=== PATIENT | male | born 1965 | race Caucasian/White ===

== ENCOUNTER 2021-11-29 10:47 | Inpatient (IN) | payer OTHER ==
[~2021-11-29] VITALS: Ht 165.1 cm; Wt 86.6 kg
[2021-11-29 10:56] VITALS: BP 154/87
[2021-11-29 11:42] LABS: BASOPHILS # (AUTO) 0.1 K/uL (0.00-0.22); HEMATOCRIT 22.2 % (36-52); LYMPHOCYTES # (AUTO) 0.7 K/uL (2.0-11.5); MONOCYTES # (AUTO) 0.5 K/uL (0.8-1.0); NEUTROPHILS # (AUTO) 3.1 K/uL (1.8-7.7)
[2021-11-29 11:51] LABS: BASOPHILS % (AUTO) 1.7 % (0.0-2.0); EOSINOPHILS % (AUTO) 0.8 % (0.0-4.0); LYMPHOCYTES % (AUTO) 15.5 % (20.5-51.1); MEAN CORPUSCULAR HEMOGLOBIN 19 pg (27-31); MEAN CORPUSCULAR HGB CONC 28 g/dL (33-37); MEAN CORPUSCULAR VOLUME 65.1 fL (80-94); MONOCYTES % (AUTO) 11.9 % (1.7-9.3); NEUTROPHILS % (AUTO) 70.1 % (42.2-75.2); PLATELET COUNT (AUTO) 230 K/uL (140-450); RED BLOOD CELL COUNT(AUTO) 3.42 MIL/uL (4.20-6.10); RED CELL DISTRIBUTION WIDTH 24.8 % (11.6-13.7); WHITE BLOOD COUNT (AUTO) 4.4 K/uL (4.8-10.8)
[2021-11-29 11:53] LABS: PROTHROMBIN TIME 12.8 secs (10.8-13.4)
[2021-11-29 11:56] LABS: HEMOGLOBIN 6.3 g/dL (12.0-18.0)
[2021-11-29 12:01] LABS: ALBUMIN 2.6 g/dL (3.4-5.0); CARBON DIOXIDE 22.8 mmol/L (21-32); CREATININE 0.8 mg/dL (0.6-1.3); POTASSIUM 3.8 mmol/L (3.5-5.1)
[2021-11-29 12:52] LABS: APPEARANCE,URINE CLEAR (CLEAR); BILIRUBIN,URINE 2+ (NEGATIVE); BLOOD, URINE NEGATIVE (NEGATIVE); COLOR,URINE YELLOW (YELLOW); LEUKOCYTE ESTERASE ,URINE NEGATIVE (NEGATIVE); NITRITE, URINE NEGATIVE (NEGATIVE); UGLUCOSE TRACE (NEGATIVE)
[2021-11-29 13:50] LABS: RBC,URINE 0-5 /HPF (0-5); WBC,URINE 0-5 /HPF (0-5)
[2021-11-29 14:05] LABS: LIPASE 655 U/L (73-393)
[2021-11-29] MEDS ORDERED: KCL 20 MEQ/WATER INJ PREMIX 200 ML IV PRN (14:30)
[2021-11-29] MEDS ORDERED: MAGNESIUM OXIDE 400 MG TAB PO PRN (14:30)
[2021-11-29] MEDS ORDERED: POTASSIUM CHLORIDE 10 MEQ TABER PO PRN (14:30)
[2021-11-29] MEDS ORDERED: ACETAMINOPHEN 325 MG TAB PO PRN (14:30)
[2021-11-29] MEDS ORDERED: ONDANSETRON 4 MG/2 ML VIAL IVP PRN (14:30)
[2021-11-29] MEDS ORDERED: MORPHINE SULFATE 4 MG/ML SYR IVP PRN (14:30)
[2021-11-29] MEDS ORDERED: HYDROcodone/APAP 5/325 MG 1 TAB TAB PO PRN (14:30)
[2021-11-29] MEDS ORDERED: MAG SULF 2000 MG/WATER PREMIX 50 ML IV PRN (14:30)
[2021-11-30] VITALS (10 sets, daily range): BP systolic 131–167; BP diastolic 75–101
[2021-11-30 06:48] LABS: BASOPHILS # (AUTO) 0.1 K/uL (0.00-0.22); BASOPHILS % (AUTO) 1.3 % (0.0-2.0); EOSINOPHILS # (AUTO) 0.1 K/uL (0-0.4); EOSINOPHILS % (AUTO) 1.7 % (0.0-4.0); HEMATOCRIT 23.6 % (36-52); LYMPHOCYTES # (AUTO) 0.8 K/uL (2.0-11.5); MEAN CORPUSCULAR HEMOGLOBIN 20 pg (27-31); MEAN CORPUSCULAR HGB CONC 30 g/dL (33-37); MEAN CORPUSCULAR VOLUME 66.7 fL (80-94); MONOCYTES # (AUTO) 0.5 K/uL (0.8-1.0); NEUTROPHILS # (AUTO) 3.7 K/uL (1.8-7.7); NEUTROPHILS % (AUTO) 71.8 % (42.2-75.2); PLATELET COUNT (AUTO) 205 K/uL (140-450); RED BLOOD CELL COUNT(AUTO) 3.54 MIL/uL (4.20-6.10); RED CELL DISTRIBUTION WIDTH 26.3 % (11.6-13.7); WHITE BLOOD COUNT (AUTO) 5.2 K/uL (4.8-10.8)
[2021-11-30 07:53] LABS: LYMPHOCYTES % (AUTO) 15.8 % (20.5-51.1); MONOCYTES % (AUTO) 9.4 % (1.7-9.3)
[2021-11-30 08:00] LABS: ALBUMIN 2.4 g/dL (3.4-5.0); ANION GAP 14.6 (8-16); ASPARTATE AMINOTRANSFERASE 48 U/L (15-37); CARBON DIOXIDE 21.1 mmol/L (21-32); CHLORIDE 102 mmol/L (98-107); CREATININE 0.8 mg/dL (0.6-1.3); GFR ARICAN-AMERICAN 128 mL/min (>90); GLUCOSE 107 mg/dL (74-106); MAGNESIUM 1.7 mg/dL (1.8-2.4); POTASSIUM 3.7 mmol/L (3.5-5.1); SODIUM SERUM 134 mmol/L (136-145); TOTAL BILIRUBIN 3.8 mg/dL (0.0-1.0); UREA NITROGEN, BLOOD 7 mg/dL (7-18)
[2021-11-30] MEDS: DOCUSATE SODIUM 100 MG GELCAP PO SCH (09:00)
[2021-11-30] MEDS: PANTOPRAZOLE 80 MG in NACL 0.9% 100 ML IVP SCH ×2 (14:30→23:37)
[2021-11-30] MEDS: PANTOPRAZOLE 40 MG INJ VIAL IVP SCH (20:45)
[2021-12-01] VITALS: BP 153/91
[2021-12-01 04:00] VITALS: BP 146/79
[2021-12-01 07:08] LABS: ALBUMIN 2.3 g/dL (3.4-5.0); ANION GAP 12.3 (8-16); CARBON DIOXIDE 25.4 mmol/L (21-32); CREATININE 0.9 mg/dL (0.6-1.3); POTASSIUM 3.7 mmol/L (3.5-5.1); TOTAL BILIRUBIN 3.5 mg/dL (0.0-1.0)
[2021-12-01 07:11] LABS: BASOPHILS % (AUTO) 0.8 % (0.0-2.0); EOSINOPHILS # (AUTO) 0.1 K/uL (0-0.4); EOSINOPHILS % (AUTO) 2.5 % (0.0-4.0); HEMOGLOBIN 7.1 g/dL (12.0-18.0); LYMPHOCYTES # (AUTO) 0.8 K/uL (2.0-11.5); LYMPHOCYTES % (AUTO) 16.3 % (20.5-51.1); MEAN CORPUSCULAR HEMOGLOBIN 20 pg (27-31); MEAN CORPUSCULAR HGB CONC 30 g/dL (33-37); MEAN CORPUSCULAR VOLUME 66.9 fL (80-94); MONOCYTES # (AUTO) 0.5 K/uL (0.8-1.0); MONOCYTES % (AUTO) 9.7 % (1.7-9.3); NEUTROPHILS # (AUTO) 3.5 K/uL (1.8-7.7); NEUTROPHILS % (AUTO) 70.7 % (42.2-75.2); PLATELET COUNT (AUTO) 215 K/uL (140-450); RED BLOOD CELL COUNT(AUTO) 3.58 MIL/uL (4.20-6.10)
[2021-12-01 07:34] LABS: MAGNESIUM 1.6 mg/dL (1.8-2.4)
[2021-12-01 08:00] VITALS: BP 148/86
[2021-12-01] MEDS: PANTOPRAZOLE 40 MG INJ VIAL IVP SCH (09:00)
[2021-12-01] MEDS: DOCUSATE SODIUM 100 MG GELCAP PO SCH (10:19)
[2021-12-01] MEDS: PANTOPRAZOLE 80 MG in NACL 0.9% 100 ML IVP SCH (10:34)
[2021-12-01 12:00] VITALS: BP 136/83
[2021-12-01 16:00] VITALS: BP 131/81
[2021-12-01 17:21] LABS: PROTHROMBIN TIME 13.6 secs (10.8-13.4)
[2021-12-01] MEDS ORDERED: LIDOCAINE MPF 1% 5 ML ONE (17:46)
[2021-12-01 20:00] VITALS: BP 145/80
[2021-12-01] MEDS: PANTOPRAZOLE 40 MG TABEC PO SCH (20:34)
[2021-12-01 20:51] LABS: GLUCOSE,BODY FLUID 123 mg/dL
[2021-12-01 21:05] LABS: APPEARANCE,SPUN,BODY FLUID CLEAR (CLEAR); APPEARANCE,UNSPUN,BODY FLUID CLEAR (CLEAR); COLOR,BODY FLUID YELLOW (LT YELLOW); SPECIMENTYPE,BODY FLUID PARACENTESIS; TOTAL VOLUME,BODY FLUID 2250 mL; WBC, BODY FLUID 0 /cu. mm.
[2021-12-01 21:06] LABS: POLYNUCLEAR, BODY FLUID 0 %; RBC, BODY FLUID 30 /cu. mm.
[2021-12-02] VITALS: BP 144/80
[2021-12-02 04:00] VITALS: BP 130/59
[2021-12-02 07:05] LABS: BASOPHILS # (AUTO) 0.1 K/uL (0.00-0.22); BASOPHILS % (AUTO) 1.3 % (0.0-2.0); EOSINOPHILS # (AUTO) 0.1 K/uL (0-0.4); EOSINOPHILS % (AUTO) 2.9 % (0.0-4.0); LYMPHOCYTES # (AUTO) 0.9 K/uL (2.0-11.5); LYMPHOCYTES % (AUTO) 17.5 % (20.5-51.1); MEAN CORPUSCULAR HEMOGLOBIN 20 pg (27-31); MEAN CORPUSCULAR HGB CONC 29 g/dL (33-37); MEAN CORPUSCULAR VOLUME 66.9 fL (80-94); MONOCYTES # (AUTO) 0.6 K/uL (0.8-1.0); MONOCYTES % (AUTO) 11.2 % (1.7-9.3); NEUTROPHILS # (AUTO) 3.3 K/uL (1.8-7.7); NEUTROPHILS % (AUTO) 67.1 % (42.2-75.2); PLATELET COUNT (AUTO) 207 K/uL (140-450); RED BLOOD CELL COUNT(AUTO) 3.43 MIL/uL (4.20-6.10); RED CELL DISTRIBUTION WIDTH 25.8 % (11.6-13.7); WHITE BLOOD COUNT (AUTO) 4.9 K/uL (4.8-10.8)
[2021-12-02 07:39] LABS: ALBUMIN 2.1 g/dL (3.4-5.0); ANION GAP 12.5 (8-16); CARBON DIOXIDE 24.2 mmol/L (21-32); CREATININE 0.9 mg/dL (0.6-1.3); MAGNESIUM 1.6 mg/dL (1.8-2.4); POTASSIUM 3.7 mmol/L (3.5-5.1); TOTAL BILIRUBIN 2.8 mg/dL (0.0-1.0)
[2021-12-02 07:54] LABS: HEMOGLOBIN 6.7 g/dL (12.0-18.0)
[2021-12-02] MEDS: DOCUSATE SODIUM 100 MG GELCAP PO SCH (09:06)
[2021-12-02] MEDS: PANTOPRAZOLE 40 MG TABEC PO SCH ×2 (09:06→20:11)
[2021-12-02 10:36] VITALS: BP 138/70
[2021-12-02 17:32] VITALS: BP 140/72
[2021-12-02 20:00] VITALS: BP 132/84
[2021-12-03] VITALS: BP 136/73
[2021-12-03 04:00] VITALS: BP 149/83
[2021-12-03 06:47] LABS: BASOPHILS # (AUTO) 0.1 K/uL (0.00-0.22); BASOPHILS % (AUTO) 1.3 % (0.0-2.0); EOSINOPHILS # (AUTO) 0.3 K/uL (0-0.4); EOSINOPHILS % (AUTO) 4.7 % (0.0-4.0); HEMATOCRIT 29.2 % (36-52); LYMPHOCYTES % (AUTO) 17.7 % (20.5-51.1); MEAN CORPUSCULAR HEMOGLOBIN 22 pg (27-31); MEAN CORPUSCULAR HGB CONC 31 g/dL (33-37); MEAN CORPUSCULAR VOLUME 70.7 fL (80-94); MONOCYTES # (AUTO) 0.6 K/uL (0.8-1.0); MONOCYTES % (AUTO) 11.4 % (1.7-9.3); NEUTROPHILS # (AUTO) 3.5 K/uL (1.8-7.7); NEUTROPHILS % (AUTO) 64.9 % (42.2-75.2); PLATELET COUNT (AUTO) 204 K/uL (140-450); RED BLOOD CELL COUNT(AUTO) 4.13 MIL/uL (4.20-6.10); RED CELL DISTRIBUTION WIDTH 28.1 % (11.6-13.7); WHITE BLOOD COUNT (AUTO) 5.4 K/uL (4.8-10.8)
[2021-12-03 07:18] LABS: ALBUMIN 2.1 g/dL (3.4-5.0); CARBON DIOXIDE 24.9 mmol/L (21-32); CREATININE 0.8 mg/dL (0.6-1.3); MAGNESIUM 1.6 mg/dL (1.8-2.4); POTASSIUM 3.9 mmol/L (3.5-5.1); TOTAL BILIRUBIN 3.9 mg/dL (0.0-1.0)
[2021-12-03 08:00] VITALS: BP 137/89
[2021-12-03] MEDS: DOCUSATE SODIUM 100 MG GELCAP PO SCH (09:03)
[2021-12-03] MEDS: PANTOPRAZOLE 40 MG TABEC PO SCH (09:04)
[2021-12-03 12:00] VITALS: BP 137/89
[2021-12-03] MEDS ORDERED: FURO-572 PO (14:50)
[2021-12-03] MEDS ORDERED: PANT40EC PO (14:50)
[2021-12-03] MEDS ORDERED: SPIR50TA PO (14:50)
[2021-12-03] MEDS ORDERED: MAGN400T7 PO (14:51)
[2021-12-03] MEDS ORDERED: MULT-2253 PO (14:52)
[2021-12-03 16:00] VITALS: BP 157/92
== END 2021-12-03 17:35 | disposition home or self-care (01) | DRG 280 ==
LOC: MED 10:47 → MTU 14:26 → MIC 11-30 06:42 → MTU 11-30 22:10 → OBSVTOIN 12-01 12:39
PROVIDERS: ADMIT Hospitalist; ATTEND Hospitalist
PROC: 30233N1 Transfusion of Nonautologous Red Blood Cells into Peripheral Vein, Percutaneous Approach (ICD-10-PCS; 2021-11-29)
PROC: 0W9G3ZZ Drainage of Peritoneal Cavity, Percutaneous Approach (ICD-10-PCS; principal; 2021-12-02)
DX: K70.31 Alcoholic cirrhosis of liver with ascites (principal); K76.6 Portal hypertension; E44.0 Moderate protein-calorie malnutrition; E87.1 Hypo-osmolality and hyponatremia; D63.8 Anemia in other chronic diseases classified elsewhere; E83.42 Hypomagnesemia; Z20.822 Contact with and (suspected) exposure to COVID-19; F10.20 Alcohol dependence, uncomplicated; Y90.9 Presence of alcohol in blood, level not specified
CPT/HCPCS: 99285; G0378; 36415; 36430; 71045; 76700; 80053; 81001; 82945; 83690; 83735; 84155; 84157; 85025; 85610; 85730; 86886; 86900; 86901; 86920; 87081; 89051; 93005; C9113; G0482; J2001; P9016; Q0092

== ENCOUNTER 2022-09-30 10:30 | Day surgery (SDC) | payer OTHER ==
[~2022-09-30] VITALS: Ht 170.2 cm; Wt 79.4 kg
[~2022-09-30 10:30] MED LIST: FURO-572 PO; MAGN400T7 PO; MULT-2253 PO; PANT40EC PO; SPIR50TA PO
[2022-09-30 13:15] LABS: BASOPHILS # (AUTO) 0.1 K/uL (0.00-0.22); BASOPHILS % (AUTO) 2.3 % (0.0-2.0); EOSINOPHILS # (AUTO) 0.2 K/uL (0-0.4); EOSINOPHILS % (AUTO) 5.1 % (0.0-4.0); HEMATOCRIT 23.5 % (36-52); HEMOGLOBIN 7.4 g/dL (12.0-18.0); LYMPHOCYTES % (AUTO) 25.5 % (20.5-51.1); MEAN CORPUSCULAR HEMOGLOBIN 24 pg (27-31); MEAN CORPUSCULAR HGB CONC 32 g/dL (33-37); MEAN CORPUSCULAR VOLUME 76.8 fL (80-94); MONOCYTES # (AUTO) 0.4 K/uL (0.8-1.0); MONOCYTES % (AUTO) 11.3 % (1.7-9.3); NEUTROPHILS # (AUTO) 2.2 K/uL (1.8-7.7); NEUTROPHILS % (AUTO) 55.8 % (42.2-75.2); PLATELET COUNT (AUTO) 206 K/uL (140-450); RED BLOOD CELL COUNT(AUTO) 3.05 MIL/uL (4.20-6.10); RED CELL DISTRIBUTION WIDTH 21.2 % (11.6-13.7)
[2022-09-30 13:22] LABS: ALBUMIN 2.3 g/dL (3.4-5.0); ANION GAP 13.5 (8-16); CARBON DIOXIDE 25.3 mmol/L (21-32); CREATININE 0.8 mg/dL (0.6-1.3); POTASSIUM 3.8 mmol/L (3.5-5.1); TOTAL BILIRUBIN 2.2 mg/dL (0.0-1.0)
[2022-09-30] MEDS ORDERED: PROPOFOL 1000 MG/100 ML PREMIX 100 ML IV ONE (13:46)
[2022-09-30] MEDS ORDERED: PROPOFOL 200 MG/20 ML VIAL IV ONE (14:03)
[2022-09-30] MEDS ORDERED: LABETALOL 20 MG/4 ML VIAL IVP PRN (14:12)
[2022-09-30] MEDS ORDERED: hydrALAZINE 20 MG/ML VIAL IVP PRN (14:14)
[2022-09-30] MEDS ORDERED: LACTATED RINGERS 1,000 ML IV SCH (14:15)
== END 2022-09-30 15:10 | disposition home or self-care (01) ==
LOC: MDS 10:30 → MMU 11:00 → MDS 15:10
PROVIDERS: ATTEND Internal Medicine Gastroenterology
DX: K70.31 Alcoholic cirrhosis of liver with ascites (principal); I85.10 Secondary esophageal varices without bleeding; K76.82 Hepatic encephalopathy; Z79.899 Other long term (current) drug therapy
CPT/HCPCS: 36415; 43244; 71045; 80053; 85025; 93005; J2704; Q0092

== ENCOUNTER 2022-11-11 10:33 | Emergency (ER) | payer OTHER ==
[~2022-11-11] VITALS: Ht 180.3 cm; Wt 92.1 kg
[2022-11-11 10:54] VITALS: BP 153/94; PULSE 97; RESP 20; TEMP 98; O2SAT 97
--- NOTE | 2022-11-11 11:40 | NUR ---
Dr. Santiago evaluating patient at bedside.
--- NOTE | 2022-11-11 11:52 | NUR ---
Lab at bedside
[2022-11-11 12:13] LABS: PROTHROMBIN TIME 13.3 secs (10.8-13.4)
[2022-11-11 12:16] LABS: BASOPHILS # (AUTO) 0.1 K/uL (0.00-0.22); EOSINOPHILS # (AUTO) 0.2 K/uL (0-0.4); EOSINOPHILS % (AUTO) 4.4 % (0.0-4.0); HEMATOCRIT 25.7 % (36-52); HEMOGLOBIN 7.8 g/dL (12.0-18.0); LYMPHOCYTES # (AUTO) 0.8 K/uL (2.0-11.5); MEAN CORPUSCULAR HEMOGLOBIN 22 pg (27-31); MEAN CORPUSCULAR HGB CONC 30 g/dL (33-37); MEAN CORPUSCULAR VOLUME 72.4 fL (80-94); MONOCYTES # (AUTO) 0.6 K/uL (0.8-1.0); MONOCYTES % (AUTO) 16.3 % (1.7-9.3); NEUTROPHILS # (AUTO) 1.9 K/uL (1.8-7.7); NEUTROPHILS % (AUTO) 54.3 % (42.2-75.2); PLATELET COUNT (AUTO) 267 K/uL (140-450); RED BLOOD CELL COUNT(AUTO) 3.55 MIL/uL (4.20-6.10); RED CELL DISTRIBUTION WIDTH 22.9 % (11.6-13.7); WHITE BLOOD COUNT (AUTO) 3.6 K/uL (4.8-10.8)
[2022-11-11 12:23] LABS: ALBUMIN 2.2 g/dL (3.4-5.0); ANION GAP 11.7 (8-16); CREATININE 0.7 mg/dL (0.6-1.3); POTASSIUM 4.7 mmol/L (3.5-5.1); TOTAL BILIRUBIN 1.9 mg/dL (0.0-1.0)
[2022-11-11] MEDS ORDERED: CALCIUM GLUC 1 GM/50 mL NS BAG 50 ML IV ONE (12:40)
[2022-11-11] MEDS ORDERED: ALBUMIN HUMAN 5 % 250 ML IV ONE (12:40)
[2022-11-11 14:23] VITALS: TEMP 97.3
[2022-11-11 16:37] VITALS: BP 142/80; PULSE 71; RESP 17; O2SAT 97
--- NOTE | 2022-11-11 16:37 | NUR ---
Patient discharged with v/s stable. Written and verbal after care instructions given and explained. Patient verbalized understanding. Ambulatory with steady gait. All questions addressed prior to discharge. Advised to follow up with PMD.
== END 2022-11-11 16:37 | disposition home or self-care (01) ==
LOC: MED 10:33
DX: K70.31 Alcoholic cirrhosis of liver with ascites (principal); I10 Essential (primary) hypertension; Z98.890 Other specified postprocedural states; Z79.899 Other long term (current) drug therapy
CPT/HCPCS: 36415; 49083; 80053; 85025; 85610; 85730; 96365; 99285; J0610; P9041

== ENCOUNTER 2023-02-19 11:34 | Inpatient (IN) | payer OTHER ==
[~2023-02-19] VITALS: Ht 167.6 cm; Wt 86.6 kg
[2023-02-19 11:53] VITALS: BP 177/96; PULSE 89; RESP 20; TEMP 97; O2SAT 98
[2023-02-19 12:53] LABS: BASOPHILS # (AUTO) 0.1 K/uL (0.00-0.22); BASOPHILS % (AUTO) 1.4 % (0.0-2.0); EOSINOPHILS # (AUTO) 0.2 K/uL (0-0.4); EOSINOPHILS % (AUTO) 3.3 % (0.0-4.0); HEMATOCRIT 32.9 % (36-52); HEMOGLOBIN 10.4 g/dL (12.0-18.0); LYMPHOCYTES # (AUTO) 0.4 K/uL (2.0-11.5); LYMPHOCYTES % (AUTO) 7.6 % (20.5-51.1); MEAN CORPUSCULAR HEMOGLOBIN 23 pg (27-31); MEAN CORPUSCULAR HGB CONC 32 g/dL (33-37); MEAN CORPUSCULAR VOLUME 73.6 fL (80-94); MONOCYTES # (AUTO) 0.7 K/uL (0.8-1.0); MONOCYTES % (AUTO) 14.5 % (1.7-9.3); NEUTROPHILS # (AUTO) 3.7 K/uL (1.8-7.7); NEUTROPHILS % (AUTO) 73.2 % (42.2-75.2); PLATELET COUNT (AUTO) 340 K/uL (140-450); RED BLOOD CELL COUNT(AUTO) 4.46 MIL/uL (4.20-6.10); RED CELL DISTRIBUTION WIDTH 19.7 % (11.6-13.7); WHITE BLOOD COUNT (AUTO) 5.1 K/uL (4.8-10.8)
[2023-02-19 13:12] LABS: ALBUMIN 2.6 g/dL (3.4-5.0); ANION GAP 12.2 (8-16); CALCIUM 8.2 mg/dL (8.5-10.1); CARBON DIOXIDE 24.4 mmol/L (21-32); CREATININE 0.9 mg/dL (0.6-1.3); INR 1.31 (0.8-1.2); PARTIAL THROMBOPLASTIN TIME 30.5 secs (22-35.6); POTASSIUM 4.6 mmol/L (3.5-5.1); PROTHROMBIN TIME 13.5 secs (10.8-13.4); TOTAL BILIRUBIN 2.8 mg/dL (0.0-1.0); TOTAL PROTEIN, SERUM 7.7 g/dL (6.4-8.2)
[2023-02-19 15:15] VITALS: O2SAT 98
[2023-02-19] MEDS ORDERED: ALBUMIN HUMAN 5 % 250 ML IV ONE (17:10)
[2023-02-19 17:15] VITALS: O2SAT 98
[2023-02-19] MEDS ORDERED: ACETAMINOPHEN 325 MG TAB PO PRN (18:05)
[2023-02-19] MEDS ORDERED: LORazepam 1 MG TAB PO PRN (18:05)
[2023-02-19] MEDS ORDERED: MORPHINE SULFATE 4 MG/ML SYR IVP PRN (18:05)
[2023-02-19] MEDS ORDERED: ZOLPIDEM 5 MG TAB PO PRN (18:05)
[2023-02-19] MEDS ORDERED: POTASSIUM CHLORIDE 10 MEQ TABER PO PRN (18:05)
[2023-02-19] MEDS ORDERED: ONDANSETRON 4 MG/2 ML VIAL IVP PRN (18:05)
[2023-02-19] MEDS ORDERED: KCL 20 MEQ IN 100 mL PREMIX 200 ML IV PRN (18:05)
[2023-02-19] MEDS ORDERED: HYDROcodone/APAP 5/325 MG 1 TAB TAB PO PRN (18:05)
[2023-02-19] MEDS ORDERED: ALBUMIN HUMAN 25% 100 ML IV ONE ×2 (18:10)
[2023-02-19 19:25] VITALS: O2SAT 98
[2023-02-19] MEDS ORDERED: hydrALAZINE 25 MG TAB PO PRN (19:45)
[2023-02-19 19:58] VITALS: BP 162/84; PULSE 109; PULSE 96; RESP 18; TEMP 98; O2SAT 98
[2023-02-19 20:18] LABS: GLUCOSE,BODY FLUID 115 mg/dL; PROTEIN, BODY FLUID 1.2 g/dL
[2023-02-19 21:01] LABS: APPEARANCE,SPUN,BODY FLUID CLEAR (CLEAR); APPEARANCE,UNSPUN,BODY FLUID CLEAR (CLEAR); COLOR,BODY FLUID LT YELLOW (LT YELLOW); RBC, BODY FLUID 5 /cu. mm.; SPECIMENTYPE,BODY FLUID PARACENTESIS; TOTAL VOLUME,BODY FLUID 9000 mL; WBC, BODY FLUID 0 /cu. mm.
[2023-02-20] VITALS (9 sets, daily range): BP systolic 126–156; BP diastolic 66–93; PULSE 83–126; RESP 18; TEMP 97.3–100.3; O2SAT 94–99
[2023-02-20 07:06] LABS: EOSINOPHILS # (AUTO) 0.2 K/uL (0-0.4); EOSINOPHILS % (AUTO) 5.1 % (0.0-4.0); HEMATOCRIT 28.3 % (36-52); HEMOGLOBIN 8.9 g/dL (12.0-18.0); LYMPHOCYTES # (AUTO) 0.5 K/uL (2.0-11.5); LYMPHOCYTES % (AUTO) 11.1 % (20.5-51.1); MEAN CORPUSCULAR HEMOGLOBIN 23 pg (27-31); MEAN CORPUSCULAR HGB CONC 32 g/dL (33-37); MEAN CORPUSCULAR VOLUME 73.7 fL (80-94); MONOCYTES # (AUTO) 0.6 K/uL (0.8-1.0); MONOCYTES % (AUTO) 13.3 % (1.7-9.3); NEUTROPHILS # (AUTO) 2.9 K/uL (1.8-7.7); NEUTROPHILS % (AUTO) 69.5 % (42.2-75.2); PLATELET COUNT (AUTO) 251 K/uL (140-450); RED BLOOD CELL COUNT(AUTO) 3.84 MIL/uL (4.20-6.10); RED CELL DISTRIBUTION WIDTH 19.1 % (11.6-13.7); WHITE BLOOD COUNT (AUTO) 4.2 K/uL (4.8-10.8)
[2023-02-20 07:14] LABS: ANION GAP 10.1 (8-16); CALCIUM 7.7 mg/dL (8.5-10.1); CARBON DIOXIDE 24.9 mmol/L (21-32); CREATININE 0.8 mg/dL (0.6-1.3)
[2023-02-20] MEDS: NACL 0.9% 1,000 ML IV SCH (11:10)
[2023-02-20] MEDS: MAG SULF 2000 MG/WATER PREMIX 50 ML IV PRN (13:01)
[2023-02-20 16:03] LABS: ANION GAP 11.4 (8-16); CALCIUM 7.4 mg/dL (8.5-10.1); CARBON DIOXIDE 22.5 mmol/L (21-32); CREATININE 0.9 mg/dL (0.6-1.3); POTASSIUM 3.9 mmol/L (3.5-5.1)
[2023-02-21] VITALS (8 sets, daily range): BP systolic 125–156; BP diastolic 80–96; PULSE 95–125; RESP 16–19; TEMP 97.2–99.1; O2SAT 95–99
[2023-02-21] MEDS: NACL 0.9% 1,000 ML IV SCH (03:21)
[2023-02-21 06:41] LABS: BASOPHILS # (AUTO) 0.1 K/uL (0.00-0.22); BASOPHILS % (AUTO) 2.1 % (0.0-2.0); EOSINOPHILS # (AUTO) 0.2 K/uL (0-0.4); EOSINOPHILS % (AUTO) 4.7 % (0.0-4.0); HEMOGLOBIN 9.8 g/dL (12.0-18.0); LYMPHOCYTES # (AUTO) 0.7 K/uL (2.0-11.5); LYMPHOCYTES % (AUTO) 14.2 % (20.5-51.1); MEAN CORPUSCULAR HEMOGLOBIN 23 pg (27-31); MEAN CORPUSCULAR HGB CONC 32 g/dL (33-37); MEAN CORPUSCULAR VOLUME 74.3 fL (80-94); MONOCYTES # (AUTO) 0.6 K/uL (0.8-1.0); MONOCYTES % (AUTO) 12.7 % (1.7-9.3); NEUTROPHILS # (AUTO) 3.1 K/uL (1.8-7.7); NEUTROPHILS % (AUTO) 66.3 % (42.2-75.2); PLATELET COUNT (AUTO) 249 K/uL (140-450); RED BLOOD CELL COUNT(AUTO) 4.18 MIL/uL (4.20-6.10); RED CELL DISTRIBUTION WIDTH 20.2 % (11.6-13.7); WHITE BLOOD COUNT (AUTO) 4.7 K/uL (4.8-10.8)
[2023-02-21 06:54] LABS: ANION GAP 11.3 (8-16); CALCIUM 7.8 mg/dL (8.5-10.1); CARBON DIOXIDE 23.5 mmol/L (21-32); CREATININE 0.8 mg/dL (0.6-1.3); POTASSIUM 3.8 mmol/L (3.5-5.1)
[2023-02-21] MEDS: SODIUM CHLORIDE 1 GM TAB PO SCH ×2 (10:03→21:39)
[2023-02-21] MEDS: FUROSEMIDE 20 MG TAB PO SCH (10:03)
[2023-02-22 04:00] VITALS: BP 140/91; PULSE 100; RESP 18; TEMP 98; O2SAT 96
[2023-02-22 07:01] LABS: BASOPHILS # (AUTO) 0.1 K/uL (0.00-0.22); BASOPHILS % (AUTO) 1.3 % (0.0-2.0); EOSINOPHILS % (AUTO) 0.8 % (0.0-4.0); HEMATOCRIT 29.7 % (36-52); HEMOGLOBIN 9.5 g/dL (12.0-18.0); LYMPHOCYTES # (AUTO) 0.8 K/uL (2.0-11.5); MEAN CORPUSCULAR HEMOGLOBIN 24 pg (27-31); MEAN CORPUSCULAR HGB CONC 32 g/dL (33-37); MEAN CORPUSCULAR VOLUME 74.1 fL (80-94); MONOCYTES # (AUTO) 0.8 K/uL (0.8-1.0); MONOCYTES % (AUTO) 14.4 % (1.7-9.3); NEUTROPHILS # (AUTO) 3.8 K/uL (1.8-7.7); NEUTROPHILS % (AUTO) 68.5 % (42.2-75.2); PLATELET COUNT (AUTO) 249 K/uL (140-450); RED BLOOD CELL COUNT(AUTO) 4.01 MIL/uL (4.20-6.10); WHITE BLOOD COUNT (AUTO) 5.6 K/uL (4.8-10.8)
[2023-02-22 07:05] LABS: ANION GAP 12.7 (8-16); CALCIUM 7.7 mg/dL (8.5-10.1); CREATININE 0.9 mg/dL (0.6-1.3); POTASSIUM 4.7 mmol/L (3.5-5.1)
[2023-02-22 08:00] VITALS: BP 130/90; PULSE 104; RESP 18; RESP 20; TEMP 98.2; O2SAT 99
[2023-02-22] MEDS: FUROSEMIDE 20 MG TAB PO SCH (08:55)
[2023-02-22] MEDS: SODIUM CHLORIDE 1 GM TAB PO SCH ×2 (08:55→20:09)
[2023-02-22] MEDS: SPIRONOLACTONE 50 MG TAB PO SCH (08:55)
[2023-02-22] MEDS ORDERED: MAGNESIUM OXIDE 400 MG TAB PO PRN (14:25)
[2023-02-22] MEDS: MAG SULF 2000 MG/WATER PREMIX 50 ML IV PRN (15:23)
[2023-02-22 20:00] VITALS: BP 129/83; PULSE 116; RESP 18; TEMP 97.5; O2SAT 97
[2023-02-22] MEDS: TRIAMCINOLONE 0.1% CRM 15 GM TUBE TP SCH (20:09)
[2023-02-23 04:00] VITALS: BP 155/85; PULSE 99; RESP 18; TEMP 98.4; O2SAT 99
[2023-02-23 07:01] LABS: BASOPHILS # (AUTO) 0.1 K/uL (0.00-0.22); BASOPHILS % (AUTO) 1.3 % (0.0-2.0); EOSINOPHILS % (AUTO) 0.5 % (0.0-4.0); HEMATOCRIT 32.2 % (36-52); HEMOGLOBIN 10.1 g/dL (12.0-18.0); LYMPHOCYTES % (AUTO) 19.2 % (20.5-51.1); MEAN CORPUSCULAR HEMOGLOBIN 23 pg (27-31); MEAN CORPUSCULAR HGB CONC 31 g/dL (33-37); MONOCYTES # (AUTO) 0.8 K/uL (0.8-1.0); MONOCYTES % (AUTO) 14.6 % (1.7-9.3); NEUTROPHILS # (AUTO) 3.4 K/uL (1.8-7.7); NEUTROPHILS % (AUTO) 64.4 % (42.2-75.2); PLATELET COUNT (AUTO) 282 K/uL (140-450); RED BLOOD CELL COUNT(AUTO) 4.36 MIL/uL (4.20-6.10); WHITE BLOOD COUNT (AUTO) 5.2 K/uL (4.8-10.8)
[2023-02-23 07:06] LABS: INR 1.32 (0.8-1.2); PROTHROMBIN TIME 13.6 secs (10.8-13.4)
[2023-02-23 07:10] LABS: ANION GAP 13.5 (8-16); CALCIUM 8.2 mg/dL (8.5-10.1); CARBON DIOXIDE 22.8 mmol/L (21-32); CREATININE 0.9 mg/dL (0.6-1.3); POTASSIUM 4.3 mmol/L (3.5-5.1)
[2023-02-23 08:00] VITALS: BP 151/94; PULSE 107; PULSE 99; RESP 18; RESP 19; TEMP 98.8; O2SAT 100; O2SAT 98
[2023-02-23] MEDS: SODIUM CHLORIDE 1 GM TAB PO SCH (09:59)
[2023-02-23] MEDS: SPIRONOLACTONE 50 MG TAB PO SCH (09:59)
[2023-02-23] MEDS: FUROSEMIDE 20 MG TAB PO SCH (09:59)
[2023-02-23] MEDS: TRIAMCINOLONE 0.1% CRM 15 GM TUBE TP SCH (10:07)
[2023-02-23] MEDS ORDERED: SPIR50TA PO (14:22)
[2023-02-23] MEDS ORDERED: FURO-572 PO (14:22)
[2023-02-23] MEDS ORDERED: PANT40EC PO (14:22)
[2023-02-23] MEDS ORDERED: ALBUMIN HUMAN 25% 100 ML IV SCH (15:30)
[2023-02-23] MEDS ORDERED: ALBUMIN HUMAN 25% 50 ML IV ONE (15:45)
[2023-02-23 16:00] VITALS: BP 147/83; PULSE 93; RESP 18; TEMP 98.9; O2SAT 99
== END 2023-02-23 18:15 | disposition home or self-care (01) | DRG 280 ==
LOC: MED 11:34 → MTU 18:05 → INTOOBSV 18:05 → UNDOADMOB 18:05 → OBSVTOIN 18:05 → MTU 02-20 22:29 → OBSVTOIN 02-20 22:29
PROVIDERS: ADMIT Internal Medicine; ATTEND Internal Medicine
PROC: 0W9G3ZZ Drainage of Peritoneal Cavity, Percutaneous Approach (ICD-10-PCS; principal; 2023-02-19)
PROC: 0W9G3ZZ Drainage of Peritoneal Cavity, Percutaneous Approach (ICD-10-PCS; 2023-02-23)
DX: K70.30 Alcoholic cirrhosis of liver without ascites (principal); E43 Unspecified severe protein-calorie malnutrition; E87.1 Hypo-osmolality and hyponatremia; D64.9 Anemia, unspecified; I10 Essential (primary) hypertension; F10.10 Alcohol abuse, uncomplicated; Y90.9 Presence of alcohol in blood, level not specified; Z79.899 Other long term (current) drug therapy; Z68.30 Body mass index [BMI] 30.0-30.9, adult
CPT/HCPCS: 36415; 49083; 71045; 76705; 80048; 80053; 82945; 83735; 83930; 83935; 84157; 84300; 85025; 85610; 85730; 87040; 87070; 87081; 87205; 89051; 99285; J1644; J2001; J3475; P9041; P9046; Q0092

== ENCOUNTER 2023-03-12 11:55 | Emergency (ER) | payer OTHER ==
[~2023-03-12] VITALS: Ht 177.8 cm; Wt 56.7 kg
[2023-03-12 12:22] VITALS: BP 144/80; PULSE 99; RESP 16; TEMP 100; O2SAT 99
[2023-03-12 13:02] LABS: BASOPHILS # (AUTO) 0.1 K/uL (0.00-0.22); EOSINOPHILS # (AUTO) 0.1 K/uL (0-0.4); EOSINOPHILS % (AUTO) 1.7 % (0.0-4.0); HEMATOCRIT 33.2 % (36-52); HEMOGLOBIN 10.4 g/dL (12.0-18.0); LYMPHOCYTES # (AUTO) 0.5 K/uL (2.0-11.5); LYMPHOCYTES % (AUTO) 7.7 % (20.5-51.1); MEAN CORPUSCULAR HEMOGLOBIN 23 pg (27-31); MEAN CORPUSCULAR HGB CONC 31 g/dL (33-37); MEAN CORPUSCULAR VOLUME 71.8 fL (80-94); MONOCYTES # (AUTO) 0.7 K/uL (0.8-1.0); MONOCYTES % (AUTO) 10.1 % (1.7-9.3); NEUTROPHILS # (AUTO) 5.6 K/uL (1.8-7.7); NEUTROPHILS % (AUTO) 79.5 % (42.2-75.2); PLATELET COUNT (AUTO) 306 K/uL (140-450); RED BLOOD CELL COUNT(AUTO) 4.61 MIL/uL (4.20-6.10); WHITE BLOOD COUNT (AUTO) 7.1 K/uL (4.8-10.8)
[2023-03-12 13:23] LABS: ALBUMIN 2.2 g/dL (3.4-5.0); CALCIUM 7.6 mg/dL (8.5-10.1); CARBON DIOXIDE 22.5 mmol/L (21-32); POTASSIUM 4.5 mmol/L (3.5-5.1); TOTAL BILIRUBIN 2.4 mg/dL (0.0-1.0); TOTAL PROTEIN, SERUM 6.8 g/dL (6.4-8.2)
[2023-03-12 15:41] LABS: FLU A ANTIGEN negative (NEGATIVE); FLU B ANTIGEN NEGATIVE (NEGATIVE)
[2023-03-12 18:27] VITALS: BP 136/77; PULSE 76; RESP 15; TEMP 99.6; O2SAT 100
== END 2023-03-12 21:29 | disposition home or self-care (01) ==
LOC: MED 11:55
DX: R18.8 Other ascites (principal); Z20.822 Contact with and (suspected) exposure to COVID-19; I10 Essential (primary) hypertension; K74.60 Unspecified cirrhosis of liver; Z79.899 Other long term (current) drug therapy
CPT/HCPCS: 36415; 49083; 71045; 80053; 83690; 85025; 99285

== ENCOUNTER 2023-03-15 11:52 | Emergency (ER) | payer OTHER ==
[~2023-03-15] VITALS: Ht 172.7 cm; Wt 75.3 kg
[2023-03-15 12:36] VITALS: BP 127/74; PULSE 77; RESP 22; TEMP 98.2; O2SAT 98
== END 2023-03-15 13:46 | disposition home or self-care (01) ==
LOC: MED 11:52
DX: T85.631A Leakage of intraperitoneal dialysis catheter, initial encounter (principal); I10 Essential (primary) hypertension; Z79.899 Other long term (current) drug therapy; Y84.8 Other medical procedures as the cause of abnormal reaction of the patient, or of later complication, without mention of misadventure at the time of the procedure
CPT/HCPCS: 99281

== ENCOUNTER 2023-03-29 15:53 | Inpatient (IN) | payer OTHER ==
[~2023-03-29] VITALS: Ht 154.9 cm; Wt 73.5 kg
[2023-03-29 15:53] VITALS: BP 181/130; PULSE 109; RESP 16; TEMP 97.3; O2SAT 97
[2023-03-29 16:30] LABS: BASOPHILS % (AUTO) 0.2 % (0.0-2.0); EOSINOPHILS % (AUTO) 0.2 % (0.0-4.0); HEMATOCRIT 34.5 % (36-52); LYMPHOCYTES # (AUTO) 0.5 K/uL (2.0-11.5); LYMPHOCYTES % (AUTO) 6.1 % (20.5-51.1); MEAN CORPUSCULAR HEMOGLOBIN 25 pg (27-31); MEAN CORPUSCULAR HGB CONC 32 g/dL (33-37); MEAN CORPUSCULAR VOLUME 78.3 fL (80-94); MONOCYTES # (AUTO) 0.6 K/uL (0.8-1.0); MONOCYTES % (AUTO) 7.7 % (1.7-9.3); NEUTROPHILS # (AUTO) 6.8 K/uL (1.8-7.7); NEUTROPHILS % (AUTO) 85.8 % (42.2-75.2); PLATELET COUNT (AUTO) 371 K/uL (140-450); RED BLOOD CELL COUNT(AUTO) 4.41 MIL/uL (4.20-6.10); RED CELL DISTRIBUTION WIDTH 29.9 % (11.6-13.7); WHITE BLOOD COUNT (AUTO) 7.9 K/uL (4.8-10.8)
[2023-03-29] MEDS ORDERED: cefTRIAXone 2,000 MG in DEXTROSE 5% 100 ML IV ONE (16:30)
[2023-03-29] MEDS ORDERED: NACL 0.9% 500 ML IV ONE (16:30)
[2023-03-29 16:49] LABS: ALBUMIN 1.9 g/dL (3.4-5.0); ANION GAP 16.4 (8-16); CALCIUM 8.1 mg/dL (8.5-10.1); CARBON DIOXIDE 19.3 mmol/L (21-32); CREATININE 1.3 mg/dL (0.6-1.3); POTASSIUM 5.7 mmol/L (3.5-5.1); TOTAL BILIRUBIN 3.4 mg/dL (0.0-1.0)
[2023-03-29] MEDS ORDERED: cefTRIAXone 2,000 MG VIAL ONE (16:59)
[2023-03-29 17:06] LABS: INR 1.31 (0.8-1.2); PARTIAL THROMBOPLASTIN TIME 33.2 secs (22-35.6); PROTHROMBIN TIME 13.5 secs (10.8-13.4)
[2023-03-29 17:17] LABS: LACTIC ACID 5.7 mmol/L (0.4-2.0)
[2023-03-29] MEDS ORDERED: SODIUM POLYSTYRENE 15 GM/60 ML UDBTL PO ONE (18:45)
[2023-03-29] MEDS ORDERED: SODIUM POLYSTYRENE 15 GM/60 ML UDBTL ONE (19:50)
[2023-03-29 20:09] LABS: PROTEIN, BODY FLUID 0.8 g/dL
[2023-03-29] MEDS ORDERED: POTASSIUM CHLORIDE 10 MEQ TABER PO PRN (20:35)
[2023-03-29] MEDS ORDERED: ONDANSETRON 4 MG/2 ML VIAL IM/IVP PRN (20:35)
[2023-03-29] MEDS ORDERED: ZOLPIDEM 5 MG TAB PO PRN (20:35)
[2023-03-29] MEDS ORDERED: DOCUSATE SODIUM 100 MG GELCAP PO PRN (20:35)
[2023-03-29] MEDS ORDERED: guaiFENesin DM 200/20 MG-10 ML 10 ML UDC PO PRN (20:35)
[2023-03-29] MEDS ORDERED: ACETAMINOPHEN 325 MG TAB PO PRN (20:35)
[2023-03-30 00:25] LABS: AMPHETAMINE, URINE NEGATIVE ng/ml (NEG <=1000); APPEARANCE,URINE CLEAR (CLEAR); BARBITURATE, URINE NEGATIVE ng/ml (NEG <=200); BENZODIAZEPINE, URINE NEGATIVE ng/mL (NEG <=200); BILIRUBIN,URINE 1+ (NEGATIVE); BLOOD, URINE NEGATIVE (NEGATIVE); CANNABINOID, URINE NEGATIVE ng/mL (NEG <=50); COCAINE, URINE NEGATIVE ng/mL (NEG <=300); COLOR,URINE YELLOW (YELLOW); LEUKOCYTE ESTERASE ,URINE NEGATIVE (NEGATIVE); NITRITE, URINE POSITIVE (NEGATIVE); OPIATE, URINE NEGATIVE ng/mL (NEG <=2000); PH,URINE 5.5 (5.0-9.0); PHENCYCLIDINE SCREEN,URINE NEGATIVE ng/mL (NEG <=25); PROTEIN,URINE TRACE (NEGATIVE); UGLUCOSE NEGATIVE (NEGATIVE); UROBILINOGEN,URINE 0.2 EU/dL (0.2 - 1)
[2023-03-30 00:27] LABS: ICTOTEST POSITIVE (NEGATIVE)
[2023-03-30 00:29] LABS: BACTERIA,URINE 10-30 (MOD) /HPF (None Seen); MUCUS,URINE 1+ /LPF (None Seen); RBC,URINE 0-5 /HPF (0-5); SQUAMOUS EPITHELIAL CELL,UR 0-3 (FEW) /LPF (0-3 (FEW)); WBC,URINE 0-5 /HPF (0-5)
[2023-03-30 01:20] VITALS: PULSE 96; RESP 20; O2SAT 97
[2023-03-30 01:26] VITALS: PULSE 111
[2023-03-30 04:00] VITALS: PULSE 93
[2023-03-30 07:21] LABS: BASOPHILS % (AUTO) 0.1 % (0.0-2.0); EOSINOPHILS % (AUTO) 0.2 % (0.0-4.0); HEMATOCRIT 32.4 % (36-52); HEMOGLOBIN 10.4 g/dL (12.0-18.0); LYMPHOCYTES # (AUTO) 0.7 K/uL (2.0-11.5); LYMPHOCYTES % (AUTO) 8.5 % (20.5-51.1); MEAN CORPUSCULAR HEMOGLOBIN 25 pg (27-31); MEAN CORPUSCULAR HGB CONC 32 g/dL (33-37); MEAN CORPUSCULAR VOLUME 77.6 fL (80-94); MONOCYTES # (AUTO) 0.8 K/uL (0.8-1.0); MONOCYTES % (AUTO) 9.1 % (1.7-9.3); NEUTROPHILS # (AUTO) 6.9 K/uL (1.8-7.7); NEUTROPHILS % (AUTO) 82.1 % (42.2-75.2); PLATELET COUNT (AUTO) 261 K/uL (140-450); RED BLOOD CELL COUNT(AUTO) 4.17 MIL/uL (4.20-6.10); RED CELL DISTRIBUTION WIDTH 30.6 % (11.6-13.7); WHITE BLOOD COUNT (AUTO) 8.4 K/uL (4.8-10.8)
[2023-03-30 07:24] LABS: ALBUMIN 1.5 g/dL (3.4-5.0); ANION GAP 11.1 (8-16); CALCIUM 7.8 mg/dL (8.5-10.1); CARBON DIOXIDE 22.9 mmol/L (21-32); CREATININE 0.9 mg/dL (0.6-1.3); TOTAL BILIRUBIN 3.2 mg/dL (0.0-1.0); TOTAL PROTEIN, SERUM 5.7 g/dL (6.4-8.2)
[2023-03-30 08:00] VITALS: BP 143/98; PULSE 95; PULSE 96; RESP 18; RESP 20; TEMP 97.2; O2SAT 100; O2SAT 97
[2023-03-30] MEDS ORDERED: PANTOPRAZOLE 40 MG TABEC PO SCH (09:00)
[2023-03-30 16:00] VITALS: BP 143/93; PULSE 98; RESP 18; TEMP 98.7; O2SAT 100
[2023-03-30 22:00] VITALS: BP 146/98; PULSE 100; RESP 18; TEMP 98.9; O2SAT 100
[2023-03-31 07:30] LABS: BASOPHILS % (AUTO) 0.1 % (0.0-2.0); EOSINOPHILS % (AUTO) 0.3 % (0.0-4.0); HEMOGLOBIN 10.7 g/dL (12.0-18.0); LYMPHOCYTES # (AUTO) 0.8 K/uL (2.0-11.5); LYMPHOCYTES % (AUTO) 8.8 % (20.5-51.1); MEAN CORPUSCULAR HEMOGLOBIN 25 pg (27-31); MEAN CORPUSCULAR HGB CONC 33 g/dL (33-37); MEAN CORPUSCULAR VOLUME 77.2 fL (80-94); MONOCYTES % (AUTO) 9.9 % (1.7-9.3); NEUTROPHILS # (AUTO) 7.8 K/uL (1.8-7.7); NEUTROPHILS % (AUTO) 80.9 % (42.2-75.2); PLATELET COUNT (AUTO) 261 K/uL (140-450); RED BLOOD CELL COUNT(AUTO) 4.28 MIL/uL (4.20-6.10); RED CELL DISTRIBUTION WIDTH 30.9 % (11.6-13.7); WHITE BLOOD COUNT (AUTO) 9.6 K/uL (4.8-10.8)
[2023-03-31 07:42] LABS: ALBUMIN 1.8 g/dL (3.4-5.0); ANION GAP 13.2 (8-16); CALCIUM 8.4 mg/dL (8.5-10.1); CARBON DIOXIDE 24.1 mmol/L (21-32); POTASSIUM 5.3 mmol/L (3.5-5.1); TOTAL BILIRUBIN 2.3 mg/dL (0.0-1.0); TOTAL PROTEIN, SERUM 6.1 g/dL (6.4-8.2)
[2023-03-31 08:00] VITALS: BP 143/96; PULSE 100; RESP 18; RESP 20; TEMP 97.5; O2SAT 96; O2SAT 98
[2023-03-31] MEDS: PANTOPRAZOLE 40 MG TABEC PO SCH (08:41)
[2023-03-31] MEDS: SPIRONOLACTONE 50 MG TAB PO SCH (08:41)
[2023-03-31] MEDS: MULTIVITAMIN 1 TAB PO SCH (08:41)
[2023-03-31] MEDS: FUROSEMIDE 20 MG TAB PO SCH (08:41)
[2023-03-31] MEDS ORDERED: NON-FORMULARY ITEM (Multivitamin (Multi-Vitamin Daily) 1 TAB) PO SCH (09:00)
[2023-03-31] MEDS ORDERED: VANCOMYCIN PER PHARMACY MC PRN (12:35)
[2023-03-31] MEDS: VANCOMYCIN 750 MG in DEXTROSE 5% 250 ML IV SCH (13:48)
[2023-03-31 16:00] VITALS: BP 134/87; PULSE 96; RESP 18; TEMP 97.7; O2SAT 98
[2023-03-31 20:00] VITALS: BP 150/92; PULSE 103; RESP 18; TEMP 98; O2SAT 99
[2023-03-31 22:11] VITALS: BP 134/87; PULSE 103; RESP 18; TEMP 97.7; O2SAT 98
[2023-03-31] MEDS: PIPERACILLIN/TAZOBACTAM 3.375 GM in DEXTROSE 5% 50 ML IV SCH (22:11)
[2023-04-01] MEDS: VANCOMYCIN 750 MG in DEXTROSE 5% 250 ML IV SCH ×2 (01:36→15:12)
[2023-04-01 04:00] VITALS: BP 127/83; PULSE 109; RESP 18; TEMP 97.8; O2SAT 99
[2023-04-01] MEDS: PIPERACILLIN/TAZOBACTAM 3.375 GM in DEXTROSE 5% 50 ML IV SCH ×3 (04:50→20:51)
[2023-04-01 06:36] LABS: BASOPHILS % (AUTO) 0.3 % (0.0-2.0); EOSINOPHILS % (AUTO) 0.4 % (0.0-4.0); HEMATOCRIT 31.6 % (36-52); HEMOGLOBIN 10.2 g/dL (12.0-18.0); LYMPHOCYTES # (AUTO) 0.8 K/uL (2.0-11.5); LYMPHOCYTES % (AUTO) 8.1 % (20.5-51.1); MEAN CORPUSCULAR HEMOGLOBIN 25 pg (27-31); MEAN CORPUSCULAR HGB CONC 32 g/dL (33-37); MEAN CORPUSCULAR VOLUME 77.2 fL (80-94); MONOCYTES # (AUTO) 1.1 K/uL (0.8-1.0); MONOCYTES % (AUTO) 11.1 % (1.7-9.3); NEUTROPHILS # (AUTO) 7.8 K/uL (1.8-7.7); NEUTROPHILS % (AUTO) 80.1 % (42.2-75.2); PLATELET COUNT (AUTO) 242 K/uL (140-450); RED BLOOD CELL COUNT(AUTO) 4.09 MIL/uL (4.20-6.10); WHITE BLOOD COUNT (AUTO) 9.7 K/uL (4.8-10.8)
[2023-04-01 08:00] VITALS: BP 118/86; PULSE 104; RESP 18; TEMP 97.4; O2SAT 95; O2SAT 99
[2023-04-01] MEDS: PANTOPRAZOLE 40 MG TABEC PO SCH (08:37)
[2023-04-01] MEDS: SPIRONOLACTONE 50 MG TAB PO SCH (08:38)
[2023-04-01] MEDS: FUROSEMIDE 20 MG TAB PO SCH (08:38)
[2023-04-01] MEDS: MULTIVITAMIN 1 TAB PO SCH (08:38)
[2023-04-01 09:20] LABS: ALBUMIN 1.5 g/dL (3.4-5.0); ANION GAP 13.4 (8-16); CARBON DIOXIDE 21.8 mmol/L (21-32); POTASSIUM 5.2 mmol/L (3.5-5.1); TOTAL BILIRUBIN 1.8 mg/dL (0.0-1.0)
[2023-04-01 16:00] VITALS: BP 130/88; PULSE 109; RESP 18; TEMP 98; O2SAT 99
[2023-04-01 20:00] VITALS: BP 144/91; PULSE 108; RESP 18; TEMP 98; O2SAT 99
[2023-04-01] MEDS: SODIUM CHLORIDE 1 GM TAB PO SCH (20:51)
[2023-04-02] MEDS: VANCOMYCIN 750 MG in DEXTROSE 5% 250 ML IV SCH ×2 (02:02→14:32)
[2023-04-02 04:00] VITALS: BP 138/87; PULSE 110; RESP 18; TEMP 97; O2SAT 99
[2023-04-02] MEDS: PIPERACILLIN/TAZOBACTAM 3.375 GM in DEXTROSE 5% 50 ML IV SCH ×3 (04:35→20:46)
[2023-04-02 07:10] LABS: ALBUMIN 1.5 g/dL (3.4-5.0); ANION GAP 11.4 (8-16); CALCIUM 7.9 mg/dL (8.5-10.1); CARBON DIOXIDE 23.4 mmol/L (21-32); POTASSIUM 4.8 mmol/L (3.5-5.1); TOTAL BILIRUBIN 2.2 mg/dL (0.0-1.0); TOTAL PROTEIN, SERUM 6.1 g/dL (6.4-8.2)
[2023-04-02 07:15] LABS: BASOPHILS % (AUTO) 0.2 % (0.0-2.0); EOSINOPHILS # (AUTO) 0.1 K/uL (0-0.4); EOSINOPHILS % (AUTO) 0.7 % (0.0-4.0); HEMATOCRIT 32.3 % (36-52); HEMOGLOBIN 10.5 g/dL (12.0-18.0); LYMPHOCYTES # (AUTO) 0.8 K/uL (2.0-11.5); LYMPHOCYTES % (AUTO) 10.3 % (20.5-51.1); MEAN CORPUSCULAR HEMOGLOBIN 25 pg (27-31); MEAN CORPUSCULAR HGB CONC 33 g/dL (33-37); MEAN CORPUSCULAR VOLUME 77.3 fL (80-94); MONOCYTES # (AUTO) 0.9 K/uL (0.8-1.0); MONOCYTES % (AUTO) 11.7 % (1.7-9.3); NEUTROPHILS # (AUTO) 5.9 K/uL (1.8-7.7); NEUTROPHILS % (AUTO) 77.1 % (42.2-75.2); PLATELET COUNT (AUTO) 241 K/uL (140-450); RED BLOOD CELL COUNT(AUTO) 4.18 MIL/uL (4.20-6.10); RED CELL DISTRIBUTION WIDTH 29.9 % (11.6-13.7); WHITE BLOOD COUNT (AUTO) 7.7 K/uL (4.8-10.8)
[2023-04-02 08:00] VITALS: PULSE 102; RESP 17; O2SAT 100
[2023-04-02] MEDS: SPIRONOLACTONE 50 MG TAB PO SCH (09:00)
[2023-04-02] MEDS: FUROSEMIDE 20 MG TAB PO SCH (10:15)
[2023-04-02] MEDS: SODIUM CHLORIDE 1 GM TAB PO SCH (10:17)
[2023-04-02] MEDS: MULTIVITAMIN 1 TAB PO SCH (10:18)
[2023-04-02] MEDS: PANTOPRAZOLE 40 MG TABEC PO SCH (10:19)
[2023-04-02 12:00] VITALS: BP 124/78; PULSE 105; RESP 18; TEMP 98.4; O2SAT 95
[2023-04-02] MEDS ORDERED: TOLVAPTAN 15 MG TAB PO SCH (13:00)
[2023-04-02 20:00] VITALS: BP 140/98; PULSE 102; PULSE 113; RESP 18; TEMP 98; O2SAT 100; O2SAT 95
[2023-04-02 20:35] LABS: ANION GAP 10.4 (8-16); CARBON DIOXIDE 24.9 mmol/L (21-32); CREATININE 1.1 mg/dL (0.6-1.3); POTASSIUM 5.3 mmol/L (3.5-5.1)
[2023-04-03] MEDS: VANCOMYCIN 750 MG in DEXTROSE 5% 250 ML IV SCH ×2 (01:37→13:48)
[2023-04-03 04:00] VITALS: BP 138/87; PULSE 103; RESP 18; TEMP 98.2; O2SAT 99
[2023-04-03] MEDS: PIPERACILLIN/TAZOBACTAM 3.375 GM in DEXTROSE 5% 50 ML IV SCH ×3 (05:03→22:07)
[2023-04-03 06:31] LABS: BASOPHILS % (AUTO) 0.5 % (0.0-2.0); EOSINOPHILS # (AUTO) 0.1 K/uL (0-0.4); EOSINOPHILS % (AUTO) 0.7 % (0.0-4.0); HEMATOCRIT 32.8 % (36-52); HEMOGLOBIN 10.5 g/dL (12.0-18.0); LYMPHOCYTES # (AUTO) 0.8 K/uL (2.0-11.5); LYMPHOCYTES % (AUTO) 9.5 % (20.5-51.1); MEAN CORPUSCULAR HEMOGLOBIN 25 pg (27-31); MEAN CORPUSCULAR HGB CONC 32 g/dL (33-37); MEAN CORPUSCULAR VOLUME 77.8 fL (80-94); MONOCYTES % (AUTO) 12.3 % (1.7-9.3); NEUTROPHILS # (AUTO) 6.3 K/uL (1.8-7.7); PLATELET COUNT (AUTO) 243 K/uL (140-450); RED BLOOD CELL COUNT(AUTO) 4.22 MIL/uL (4.20-6.10); RED CELL DISTRIBUTION WIDTH 29.7 % (11.6-13.7); WHITE BLOOD COUNT (AUTO) 8.1 K/uL (4.8-10.8)
[2023-04-03 06:46] LABS: ALBUMIN 1.6 g/dL (3.4-5.0); ANION GAP 12.1 (8-16); CALCIUM 8.3 mg/dL (8.5-10.1); CARBON DIOXIDE 24.1 mmol/L (21-32); CREATININE 1.1 mg/dL (0.6-1.3); POTASSIUM 5.2 mmol/L (3.5-5.1); TOTAL BILIRUBIN 2.2 mg/dL (0.0-1.0); TOTAL PROTEIN, SERUM 6.3 g/dL (6.4-8.2)
[2023-04-03 08:00] VITALS: BP 124/79; PULSE 106; RESP 20; TEMP 98.8; O2SAT 99
[2023-04-03] MEDS: MULTIVITAMIN 1 TAB PO SCH (08:43)
[2023-04-03] MEDS: PANTOPRAZOLE 40 MG TABEC PO SCH (08:43)
[2023-04-03] MEDS: FUROSEMIDE 40 MG TAB PO SCH ×2 (08:43→21:48)
[2023-04-03] MEDS ORDERED: FUROSEMIDE 40 MG TAB PO SCH (09:00)
[2023-04-03] MEDS ORDERED: SPIRONOLACTONE 50 MG TAB PO SCH (09:00)
[2023-04-03 09:17] VITALS: PULSE 106; RESP 20; O2SAT 99
[2023-04-03] MEDS: SPIRONOLACTONE 50 MG TAB PO SCH (09:47)
[2023-04-03 16:00] VITALS: BP 119/81; PULSE 105; RESP 18; TEMP 97.8; O2SAT 98
[2023-04-03 20:00] VITALS: PULSE 102; RESP 18; O2SAT 98
[2023-04-04 04:00] VITALS: BP 136/73; PULSE 100; RESP 18; TEMP 98.2; O2SAT 97
[2023-04-04] MEDS: PIPERACILLIN/TAZOBACTAM 3.375 GM in DEXTROSE 5% 50 ML IV SCH ×3 (05:00→21:10)
[2023-04-04] MEDS ORDERED: PIPERACILLIN/TAZOBACTAM 3.375 GM in DEXTROSE 5% 50 ML IV SCH (06:00)
[2023-04-04 07:33] LABS: BASOPHILS % (AUTO) 0.3 % (0.0-2.0); EOSINOPHILS % (AUTO) 0.4 % (0.0-4.0); HEMATOCRIT 32.7 % (36-52); HEMOGLOBIN 10.7 g/dL (12.0-18.0); LYMPHOCYTES # (AUTO) 0.9 K/uL (2.0-11.5); MEAN CORPUSCULAR HEMOGLOBIN 25 pg (27-31); MEAN CORPUSCULAR HGB CONC 33 g/dL (33-37); MEAN CORPUSCULAR VOLUME 77.4 fL (80-94); MONOCYTES # (AUTO) 0.9 K/uL (0.8-1.0); NEUTROPHILS % (AUTO) 76.3 % (42.2-75.2); PLATELET COUNT (AUTO) 237 K/uL (140-450); RED BLOOD CELL COUNT(AUTO) 4.22 MIL/uL (4.20-6.10); RED CELL DISTRIBUTION WIDTH 30.2 % (11.6-13.7); WHITE BLOOD COUNT (AUTO) 7.9 K/uL (4.8-10.8)
[2023-04-04 08:00] VITALS: BP 135/96; PULSE 102; RESP 20; TEMP 98.6; O2SAT 99
[2023-04-04 08:08] LABS: ALBUMIN 1.6 g/dL (3.4-5.0); ANION GAP 11.4 (8-16); CALCIUM 8.7 mg/dL (8.5-10.1); CARBON DIOXIDE 26.2 mmol/L (21-32); CREATININE 1.3 mg/dL (0.6-1.3); POTASSIUM 4.6 mmol/L (3.5-5.1); TOTAL BILIRUBIN 2.4 mg/dL (0.0-1.0); TOTAL PROTEIN, SERUM 6.4 g/dL (6.4-8.2)
[2023-04-04] MEDS: FUROSEMIDE 40 MG TAB PO SCH ×2 (08:32→21:11)
[2023-04-04] MEDS: PANTOPRAZOLE 40 MG TABEC PO SCH (08:33)
[2023-04-04] MEDS: MULTIVITAMIN 1 TAB PO SCH (08:33)
[2023-04-04] MEDS: SPIRONOLACTONE 50 MG TAB PO SCH (08:33)
[2023-04-04] MEDS: VANCOMYCIN 1,000 MG in DEXTROSE 5% 250 ML IV SCH (14:36)
[2023-04-04 16:00] VITALS: BP 129/92; PULSE 106; RESP 19; TEMP 98.9; O2SAT 99
[2023-04-04 20:00] VITALS: BP 117/90; PULSE 109; RESP 19; TEMP 97.1; O2SAT 97
[2023-04-05 04:00] VITALS: BP 133/97; PULSE 104; RESP 19; TEMP 97.4; O2SAT 97
[2023-04-05] MEDS: PIPERACILLIN/TAZOBACTAM 3.375 GM in DEXTROSE 5% 50 ML IV SCH ×3 (04:47→21:46)
[2023-04-05 07:12] LABS: BASOPHILS % (AUTO) 0.2 % (0.0-2.0); EOSINOPHILS # (AUTO) 0.1 K/uL (0-0.4); EOSINOPHILS % (AUTO) 1.1 % (0.0-4.0); HEMATOCRIT 31.6 % (36-52); HEMOGLOBIN 10.5 g/dL (12.0-18.0); LYMPHOCYTES # (AUTO) 0.9 K/uL (2.0-11.5); MEAN CORPUSCULAR HEMOGLOBIN 26 pg (27-31); MEAN CORPUSCULAR HGB CONC 33 g/dL (33-37); MEAN CORPUSCULAR VOLUME 77.3 fL (80-94); MONOCYTES # (AUTO) 0.9 K/uL (0.8-1.0); MONOCYTES % (AUTO) 12.1 % (1.7-9.3); NEUTROPHILS # (AUTO) 5.6 K/uL (1.8-7.7); NEUTROPHILS % (AUTO) 74.6 % (42.2-75.2); PLATELET COUNT (AUTO) 203 K/uL (140-450); RED BLOOD CELL COUNT(AUTO) 4.09 MIL/uL (4.20-6.10); RED CELL DISTRIBUTION WIDTH 29.5 % (11.6-13.7); WHITE BLOOD COUNT (AUTO) 7.5 K/uL (4.8-10.8)
[2023-04-05 07:47] LABS: ALBUMIN 1.6 g/dL (3.4-5.0); ANION GAP 11.2 (8-16); CALCIUM 8.2 mg/dL (8.5-10.1); CARBON DIOXIDE 25.3 mmol/L (21-32); CREATININE 1.4 mg/dL (0.6-1.3); POTASSIUM 4.5 mmol/L (3.5-5.1); TOTAL BILIRUBIN 2.3 mg/dL (0.0-1.0); TOTAL PROTEIN, SERUM 6.3 g/dL (6.4-8.2)
[2023-04-05 08:00] VITALS: BP 117/80; PULSE 101; PULSE 104; PULSE 113; RESP 18; TEMP 97.1; O2SAT 97; O2SAT 98
[2023-04-05] MEDS: SPIRONOLACTONE 50 MG TAB PO SCH (08:57)
[2023-04-05] MEDS: MULTIVITAMIN 1 TAB PO SCH (08:57)
[2023-04-05] MEDS: PANTOPRAZOLE 40 MG TABEC PO SCH (08:57)
[2023-04-05] MEDS: FUROSEMIDE 40 MG TAB PO SCH ×2 (08:57→21:47)
[2023-04-05] MEDS: HYDROcodone/APAP 7.5/325 MG 1 TAB PO PRN ×2 (08:58→17:09)
[2023-04-05] MEDS: VANCOMYCIN 1,000 MG in DEXTROSE 5% 250 ML IV SCH (15:51)
[2023-04-05 16:00] VITALS: BP 137/102; PULSE 94; RESP 18; TEMP 97.9; O2SAT 98
[2023-04-05] MEDS ORDERED: SODIUM CHLORIDE 1 GM TAB PO ONE (19:10)
[2023-04-05 20:00] VITALS: BP 135/98; PULSE 100; PULSE 94; RESP 18; RESP 20; TEMP 98.5; O2SAT 97; O2SAT 98
[2023-04-06] MEDS: SODIUM CHLORIDE 1 GM TAB ONE ×2 (03:48→03:53)
[2023-04-06 04:00] VITALS: BP 140/96; PULSE 105; RESP 20; TEMP 97.1; O2SAT 97
[2023-04-06] MEDS: PIPERACILLIN/TAZOBACTAM 3.375 GM in DEXTROSE 5% 50 ML IV SCH (05:13)
[2023-04-06 06:25] LABS: BASOPHILS % (AUTO) 0.2 % (0.0-2.0); EOSINOPHILS # (AUTO) 0.1 K/uL (0-0.4); EOSINOPHILS % (AUTO) 0.9 % (0.0-4.0); HEMATOCRIT 32.1 % (36-52); HEMOGLOBIN 10.7 g/dL (12.0-18.0); LYMPHOCYTES # (AUTO) 0.9 K/uL (2.0-11.5); LYMPHOCYTES % (AUTO) 11.7 % (20.5-51.1); MEAN CORPUSCULAR HEMOGLOBIN 25 pg (27-31); MEAN CORPUSCULAR HGB CONC 33 g/dL (33-37); MEAN CORPUSCULAR VOLUME 76.7 fL (80-94); MONOCYTES # (AUTO) 0.8 K/uL (0.8-1.0); MONOCYTES % (AUTO) 11.1 % (1.7-9.3); NEUTROPHILS # (AUTO) 5.5 K/uL (1.8-7.7); NEUTROPHILS % (AUTO) 76.1 % (42.2-75.2); PLATELET COUNT (AUTO) 187 K/uL (140-450); RED BLOOD CELL COUNT(AUTO) 4.19 MIL/uL (4.20-6.10); RED CELL DISTRIBUTION WIDTH 29.7 % (11.6-13.7); WHITE BLOOD COUNT (AUTO) 7.3 K/uL (4.8-10.8)
[2023-04-06 06:46] LABS: ANION GAP 12.8 (8-16); CALCIUM 8.6 mg/dL (8.5-10.1); CARBON DIOXIDE 25.9 mmol/L (21-32); CREATININE 1.4 mg/dL (0.6-1.3); POTASSIUM 4.7 mmol/L (3.5-5.1)
[2023-04-06 08:00] VITALS: BP 129/94; PULSE 94; RESP 18; TEMP 98; O2SAT 98
[2023-04-06] MEDS: SPIRONOLACTONE 50 MG TAB PO SCH (08:45)
[2023-04-06] MEDS: FUROSEMIDE 40 MG TAB PO SCH ×2 (08:45→20:57)
[2023-04-06] MEDS: PANTOPRAZOLE 40 MG TABEC PO SCH (08:46)
[2023-04-06] MEDS: MULTIVITAMIN 1 TAB PO SCH (08:46)
[2023-04-06 11:19] LABS: INR 1.23 (0.8-1.2); PARTIAL THROMBOPLASTIN TIME 32.5 secs (22-35.6); PROTHROMBIN TIME 12.8 secs (10.8-13.4)
[2023-04-06 12:00] VITALS: BP 143/98; PULSE 94; RESP 18; TEMP 98.1; O2SAT 99
[2023-04-06] MEDS ORDERED: NACL 3% 150 ML IV SCH (12:00)
[2023-04-06 16:00] VITALS: BP 138/98; PULSE 89; RESP 18; TEMP 97.6; O2SAT 98
[2023-04-06 18:45] LABS: ANION GAP 10.2 (8-16); CALCIUM 8.6 mg/dL (8.5-10.1); CREATININE 1.4 mg/dL (0.6-1.3); POTASSIUM 5.2 mmol/L (3.5-5.1)
[2023-04-06 20:00] VITALS: PULSE 90; RESP 18; O2SAT 97
[2023-04-07] VITALS: BP 132/86; PULSE 92; RESP 18; TEMP 98; O2SAT 97
[2023-04-07 06:22] LABS: ANION GAP 10.1 (8-16); CALCIUM 8.6 mg/dL (8.5-10.1); CARBON DIOXIDE 28.1 mmol/L (21-32); CREATININE 1.4 mg/dL (0.6-1.3); POTASSIUM 5.2 mmol/L (3.5-5.1)
[2023-04-07] MEDS ORDERED: SODIUM ZIRCONIUM CYCLOSILICATE 10 GM POWD.PACK PO SCH (07:34)
[2023-04-07 08:00] VITALS: BP 135/89; PULSE 97; RESP 16; RESP 18; TEMP 97.1; O2SAT 97
[2023-04-07] MEDS: MULTIVITAMIN 1 TAB PO SCH (08:41)
[2023-04-07] MEDS: FUROSEMIDE 40 MG TAB PO SCH ×2 (08:41→20:32)
[2023-04-07] MEDS: PANTOPRAZOLE 40 MG TABEC PO SCH (08:41)
[2023-04-07] MEDS ORDERED: VANCOMYCIN 750 MG in DEXTROSE 5% 250 ML IV SCH (11:00)
[2023-04-07] MEDS ORDERED: NACL 3% 150 ML IV ONE (11:40)
[2023-04-07] MEDS ORDERED: VANCOMYCIN PER PHARMACY MC PRN (15:15)
[2023-04-07 16:00] VITALS: BP 139/94; PULSE 94; RESP 16; TEMP 97.5; O2SAT 99
[2023-04-07] MEDS ORDERED: ALBUMIN HUMAN 25% 100 ML IV SCH (16:30)
[2023-04-07 17:10] VITALS: BP 131/79; PULSE 83; RESP 18; TEMP 97.6; O2SAT 99
[2023-04-07 18:43] LABS: ANION GAP 10.4 (8-16); CALCIUM 8.6 mg/dL (8.5-10.1); CARBON DIOXIDE 27.2 mmol/L (21-32); CREATININE 1.4 mg/dL (0.6-1.3); POTASSIUM 4.6 mmol/L (3.5-5.1)
[2023-04-07 20:00] VITALS: BP 124/71; PULSE 86; RESP 18; TEMP 96.8; O2SAT 100
[2023-04-08 04:00] VITALS: BP 130/75; PULSE 81; RESP 18; TEMP 97.6; O2SAT 100
[2023-04-08 06:32] LABS: ANION GAP 11.5 (8-16); CALCIUM 8.5 mg/dL (8.5-10.1); CARBON DIOXIDE 26.8 mmol/L (21-32); CREATININE 1.1 mg/dL (0.6-1.3); POTASSIUM 4.3 mmol/L (3.5-5.1)
[2023-04-08 08:00] VITALS: BP 126/74; PULSE 88; RESP 16; TEMP 96.4; O2SAT 98
[2023-04-08] MEDS: PANTOPRAZOLE 40 MG TABEC PO SCH (08:59)
[2023-04-08] MEDS: FUROSEMIDE 40 MG TAB PO SCH (08:59)
[2023-04-08] MEDS: MULTIVITAMIN 1 TAB PO SCH (08:59)
[2023-04-08] MEDS ORDERED: VANCOMYCIN 750 MG in DEXTROSE 5% 250 ML IV SCH (09:00)
[2023-04-08 09:36] VITALS: PULSE 88; RESP 16; O2SAT 98
[2023-04-08 10:27] VITALS: BP 126/74; PULSE 88; RESP 16; TEMP 96.4
== END 2023-04-08 13:40 | disposition home or self-care (01) | DRG 720 ==
LOC: MED 15:53 → MTU 20:31
PROVIDERS: ADMIT Student in an Organized Health Care Education/Training Program; ATTEND Student in an Organized Health Care Education/Training Program
PROC: 02HV33Z Insertion of Infusion Device into Superior Vena Cava, Percutaneous Approach (ICD-10-PCS; 2023-04-02)
PROC: B548ZZA Ultrasonography of Superior Vena Cava, Guidance (ICD-10-PCS; 2023-04-02)
PROC: 0W9G3ZZ Drainage of Peritoneal Cavity, Percutaneous Approach (ICD-10-PCS; principal; 2023-04-07)
DX: A41.9 Sepsis, unspecified organism (principal); E43 Unspecified severe protein-calorie malnutrition; K65.2 Spontaneous bacterial peritonitis; I38 Endocarditis, valve unspecified; E87.1 Hypo-osmolality and hyponatremia; K70.31 Alcoholic cirrhosis of liver with ascites; Z68.30 Body mass index [BMI] 30.0-30.9, adult; Z83.3 Family history of diabetes mellitus; Z81.1 Family history of alcohol abuse and dependence
CPT/HCPCS: 36415; 49083; 71045; 71250; 76705; 80048; 80053; 80202; 80305; 81001; 82150; 82945; 83605; 83690; 84157; 85025; 85610; 85730; 87040; 87070; 87081; 87186; 93005; 96365; 99285; J0696; J2001; J2543; J3370; J3490; J7060; P9046; Q0092